=== PATIENT | male | born 1945 | race Caucasian/White ===

== ENCOUNTER → 2016-11-09 | Day surgery (SDC) | payer MEDICARE ==
[~2016-11-09] MED LIST: ALLO100T PO; AMLO5TAB96 PO; ASPI81 PO; BUPIVACAINE HCL PF 0.75% 30 ML VIAL ONE; CALC-137 PO; CLINDAMYCIN PHOS 600 MG/4 ML VIAL ONE; DYAZ37.52 PO; EPINEPHrine HCL (1:1000) 30 MG/30 ML VIAL ONE; FEXO180T PO; FISH1000 PO; LACTATED RINGER'S 1000 ML INJ 1,000 ML ONE; LIDOCAINE 1.5%/EPINEPHrine 1:200,000 PF SOLN 30 ML AMP ONE; MIDAZOLAM HCL 2 MG/2 ML VIAL ONE; MIDAZOLAM HCL 5 MG/ML VIAL (1 ML) ONE; MORPHINE SULFATE 4 MG/ML INJ ONE; ONDANSETRON HCL 4 MG/2 ML VIAL IV PUSH ONE; PROPOFOL 200 MG/20 ML AMP IV ONE; RED600TA PO; SENO8.6T6 PO; STOO100T PO; TAB-TAB PO; oxyCODONE/ACETAMINOPHEN 5 MG/325 MG TAB ONE
--- NOTE | 2016-11-10 12:00 | MP ---
cc: GHANSHYAM CORRALES M.D. DATE OF SURGERY: 11/09/2016 PREOPERATIVE DIAGNOSIS Right shoulder large subscapularis rotator cuff tear and undersurface supraspinatus tear with labral pathology and impingement syndrome and biceps tendinitis. POSTOPERATIVE DIAGNOSIS 1. Large full-thickness subscapularis rotator cuff tear. 2. 50% undersurface supraspinatus rotator cuff tear. 3. Anterior labral, superior labral and posterior labral tear and articular surface fraying. 4. Impingement syndrome. PROCEDURE 1. Right shoulder arthroscopic rotator cuff repair using six suture anchors. 2. Extensive debridement anterior labrum, superior labrum, posterior labrum and articular surface inferiorly. 3. Right shoulder arthroscopic subacromial decompression. ANESTHESIA Interscalene block and general. SURGEON Ghanshyam Corrales MD [employer] SURGEON NADEEM Dyson ESTIMATED BLOOD LOSS Minimal. DRAINS None. SPECIMEN None. COMPLICATIONS None known. INDICATION Prasanna Boucher is a 71-year-old male with large rotator cuff tear and marked dysfunction. He is indicated for surgical repair. The risks and benefits were thoroughly discussed in detail. Informed consent was obtained. The entry level marketing assistant, Mitesh Szymanski, is an advanced registered nurse practitioner with the sub-specialization of orthopedic surgery. His skill set was medically necessary for the performance of the operation. DETAILS OF PROCEDURE After the interscalene block in the pre-op holding area the patient was brought to the operating room, placed under general anesthetic and then turned into a lateral decubitus position with axillary roll in place with the right shoulder up. The right shoulder was draped and prepped in usual sterile fashion. IV antibiotics were given. Timeout was completed. Bony landmarks were drawn out and we made a portal in the posterior soft spot and then a lateral based portal at the anterolateral border of the acromion and eventually an accessory portal was placed anteriorly. Blunt trocar used to introduce the cannula. The first photograph shows good articular surface of the humeral head and glenoid. The second photograph shows marked fraying about the anterior labrum and superior labrum. The third photograph shows the posterior labral fraying and undersurface rotator cuff tear involving the supraspinatus and the full-thickness tear of the infraspinatus. We then proceeded with extensive debridement of the undersurface rotator cuff tear and then the posterior labrum then the superior labrum then the anterior labrum. There was some articular surface irregularity anterior inferiorly which was debrided. He did not have a Bankart lesion. Follow-up photograph was then taken here posteriorly and superiorly looking at the biceps tendon. The biceps tendon did appear intact along its course and stable within the bicipital groove. We prepared the bone from this side on the undersurface of the supraspinatus then came to subacromial space, bursectomy performed, visualization, shaved down to bleeding bone and the supraspinatus repair site and the subscapularis repair site and then assessed for repair. We used two-anchor repair for the supraspinatus, a front row and a back row, and for the subscapularis likewise we did a [employer] typical crisscross technique. We debrided tissue down to solid bone with good vascularity and then checked our position and used dog ear sutures as needed. Photograph showing the multiple sutures and pulling into place of both the posterior to the biceps tendon and anterior to the biceps tendon, and then the finished product, crisscross technique anteriorly photographed. Did have an anterior acromial spur and an anterior acromionectomy removal of portion of the spur anteriorly. We had very good hemostasis when we were finished and the repair looked excellent with probing. Final photographs have been taken. The patient was awoken and returned to the recovery room in stable condition. MD AMARJIT Ca/EDIL /9:55 AM /11:49 AM
== END | disposition home or self-care (01) ==
LOC: ESDC 06:05
PROVIDERS: ATTEND Orthopaedic Surgery Sports Medicine
DX: M75.121 Complete rotator cuff tear or rupture of right shoulder, not specified as traumatic (principal); S43.431A Superior glenoid labrum lesion of right shoulder, initial encounter; M75.41 Impingement syndrome of right shoulder
CPT/HCPCS: 01630; 01991; 29823; 29826; 29827; 64417; C1713; J0171; J2250; J2270; J2405; J7120